=== PATIENT | female | born 1960 | race Caucasian/White ===

== ENCOUNTER 2022-01-06 17:14 | Emergency (ER) | payer MEDICAID, OTHER ==
[~2022-01-06] VITALS: Ht 157.5 cm; Wt 77.0 kg
[~2022-01-06 17:14] MED LIST: ATENOLOL PO; [UNRECOGNIZED DRUG - OTHER]
[2022-01-06 17:17] VITALS: BP 146/89
[2022-01-06] MEDS ORDERED: LIDOCAINE HCL 4% CREAM 76GM TUBE TP STA (21:05)
[2022-01-06] MEDS ORDERED: LIDO28.35 TP (21:08)
== END 2022-01-06 21:36 | disposition home or self-care (01) ==
LOC: ER 17:14
DX: M79.641 Pain in right hand (principal); I10 Essential (primary) hypertension; Z86.73 Personal history of transient ischemic attack (TIA), and cerebral infarction without residual deficits; Z98.890 Other specified postprocedural states
CPT/HCPCS: 99283